=== PATIENT | male | born 1990 | race Caucasian/White ===

== ENCOUNTER 2020-10-16 21:38 | Emergency (ER) | payer OTHER ==
[~2020-10-16] VITALS: Ht 175.3 cm; Wt 56.7 kg
[2020-10-16] MEDS ORDERED: AUGMENTIN 875-1 EACH PO (22:59)
[2020-10-16 23:06] VITALS: BP 122/68
== END 2020-10-16 23:06 | disposition home or self-care (01) ==
LOC: M.ERS 21:38
DX: S01.01XA Laceration without foreign body of scalp, initial encounter (principal); S61.411A Laceration without foreign body of right hand, initial encounter; W55.03XA Scratched by cat, initial encounter; Y93.89 Activity, other specified; Y92.89 Other specified places as the place of occurrence of the external cause; Y99.8 Other external cause status